=== PATIENT | female | born 1960 | race Caucasian/White ===

== ENCOUNTER 2016-11-22 22:48 | Emergency (ER) | payer SELFPAY ==
[~2016-11-22 22:48] MED LIST: DICL75TA PO; ROBA500T PO
[2016-11-22 22:52] VITALS: BP 144/75; PULSE 60; RESP 16; TEMP 98.2; O2SAT 95
[2016-11-23] MEDS ORDERED: BACT800T5 PO (01:00)
[2016-11-23] MEDS ORDERED: ACETAMINOPHEN/HYDROcodone 325 MG/5 MG TAB PO ONE (01:00)
[2016-11-23] MEDS ORDERED: SULFAMETHOXAZOLE-TRIMETHOPRIM DS 800-160 MG TAB PO ONE (01:00)
[2016-11-23] MEDS ORDERED: CEPHALEXIN MONOHYDRATE 500 MG CAP PO ONE (01:00)
[2016-11-23] MEDS ORDERED: CEPH-460 PO (01:00)
--- NOTE | 2016-11-23 01:06 | PD ---
HPI Chief Complaint: Bite or Sting Time Seen by Provider: 00:55 Travel History International Travel<30 days: No Contact w/Intl Traveler<30days: No Traveled to known affect area: No History of Present Illness HPI 56-year-old white female presents to emergency Department with complaints of a infection to her left lower leg which occurred one week ago. She states that she had fell on a carpeted floor the had gotten wet. She states that she developed several lesions on her lower leg which have become increasingly painful and swollen. Positive discharge. She states that she is up-to-date with immunizations. Pain is mild to moderate. Worse with ambulation. Some relief with elevation. She denies any fever or chills. No history of staph infections. PFSH Past Medical History Medical History: Denies Significant Hx Diminished Hearing: No Tetanus Vaccination: < 5 Years ?: Not : 3 Para: 2 : 1 Past Surgical History Narrative Surgical Uterine prolapse, cervical fusion Genitourinary Surgery: Yes (uterine prolapse repair) Other Surgery: Yes (bunionectomy left foot.) Social History Alcohol Use: No Tobacco Use: No Substance Use: No Allergies-Medications (Allergen,Severity, Reaction): Coded Allergies: No Known Allergies (Unverified , 11/22/16) Reported Meds & Prescriptions Reported Meds & Active Scripts Active Keflex (Cephalexin) 500 Mg Cap 500 Mg PO Q6H Bactrim DS (Sulfamethoxazole-Trimethoprim) 800-160 Mg Tab 1 Tab PO BID Review of Systems Except as stated in HPI: all other systems reviewed are Neg Physical Exam Narrative GENERAL: This is a well-nourished, well-developed patient, in no apparent distress. SKIN: No rashes, ecchymoses or lesions. Warm and dry. HEAD: Atraumatic. Normocephalic. EYES: PERRL, EOMI, no discharge or injection. No scleral icterus. EARS: Clear NOSE: Nasal turbinates appear normal. THROAT: Mucosa pink and moist. Airway patent. NECK: Trachea midline. supple, moves head freely. LUNGS: Clear to auscultation. CV: Regular in rhythm. ABDOMEN: Soft nontender. EXT: No clubbing cyanosis or edema. The patient has 2 erythematous tender swollen areas to the left lower pretibial region. Each measures approximately 4 x 4 centimeters. There is no fluctuance or pointing. The skin is broken down in a small amount of serosanguineous discharge. This is cultured. Data Data Last Documented VS Vital Signs Date Time Temp Pulse Resp B/P (MAP) Pulse Ox O2 Delivery O2 Flow Rate FiO2 11/22/16 22:52 98.2 60 16 144/75 (98) 95 Room Air Orders Orders Cephalexin (Keflex) (11/23/16 01:00) Sulfamet-Trimeth Ds 800-160 Mg (Bactrim (11/23/16 01:00) Acetamin-Hydrocod 325-5 Mg ([place] 5-325 (11/23/16 01:00) Wound Culture And Gram Stain (11/23/16 01:01) MDM Medical Decision Making Medical Screen Exam Complete: Yes Emergency Medical Condition: Yes Medical Record Reviewed: Yes Differential Diagnosis MDM: High Differential diagnoses: Abscess, folliculitis, cellulitis, lymphangitis, abrasion, contact dermatitis Narrative Course Patient is given Keflex 500 mg and Bactrim DS and one Lortab 5 mg by mouth here in the ER. A culture has been performed. This is left lower extremity cellulitis Diagnosis Primary Impression: Cellulitis of left lower leg Patient Instructions: General Instructions, Narcotic given in the ED Additional Instructions: Rest. Elevation. Warm compresses. Daily wound care with soap, water, Neosporin. Keflex and Bactrim DS. Recheck with a primary care doctor in 3-5 days. Return to the ER if any problems. Med/Other Pt SpecificInfo: Prescription(s) given, Wound Care Scripts Cephalexin (Keflex) 500 Mg Cap 500 MG PO Q6H for Infection, #28 CAP 0 Refills Prov: Kenzie Ang MD 11/23/16 Sulfamethoxazole-Trimethoprim (Bactrim DS) 800-160 Mg Tab 1 TAB PO BID for Infection, #20 TAB 0 Refills Prov: Kenzie Ang MD 11/23/16 Disposition: LEFT WITHOUT BEING SEEN Cortez Childs Nov 23, 2016 01:06
== END 2016-11-23 01:15 | disposition home or self-care (01) ==
LOC: NEPD 22:48
DX: L03.116 Cellulitis of left lower limb (principal); B95.0 Streptococcus, group A, as the cause of diseases classified elsewhere
CPT/HCPCS: 87070; 99284

== ENCOUNTER → 2017-09-10 | Day surgery (SDC) | payer BC ==
[~2017-09-10] MED LIST changes: +ACETAMINOPHEN/HYDROcodone 325 MG/5 MG TAB ONE; +BACT800T5 PO; +BUPIVACAINE HCL PF 0.5% 30 ML VIAL ONE; +CEPH-460 PO; -DICL75TA PO; +LACTATED RINGER'S 1000 ML INJ 1,000 ML ONE; +MIDAZOLAM HCL 2 MG/2 ML VIAL ONE; +PROPOFOL 200 MG/20 ML AMP IV ONE; -ROBA500T PO; +ceFAZolin 2 GM PREMIX 50 ML ONE
--- NOTE | 2017-09-10 10:14 | MP ---
cc: Debo Harrington [facility] DATE OF OPERATION: 09/10/2017 SURGEON: Debo Harrington MD TUG MASTER: None. PREOPERATIVE DIAGNOSES: 1. Left foot retained hardware. 2. Left foot first metatarsal hallux valgus. 3. Second metatarsal elongation. 4. Second digit hammertoe. POSTOPERATIVE DIAGNOSES: 1. Left foot retained hardware. 2. Left foot first metatarsal hallux valgus. 3. Second metatarsal elongation. 4. Second digit hammertoe. PROCEDURE PERFORMED: 1. Left foot hardware removal. 2. Left first MPJ fusion. 3. Left second metatarsal Ilya osteotomy. 4. Left second hammertoe repair. PATHOLOGY SENT: None. ANESTHESIA: General. HEMOSTASIS: Pneumatic ankle tourniquet at 250 mmHg. ESTIMATED BLOOD LOSS: Less than 5 mL. MATERIALS USED: Include Arthrex plate and screws, a 0.062 K-wire, 3-0 Monocryl, 3-0 Prolene. INJECTABLES: 10 mL of 0.5 percent Marcaine plain. COMPLICATIONS: None. INDICATIONS: Ms. Ortiz is a 57-year-old female patient well known to me from the office. She had a failed previous bunionectomy and was having severe deformity and pain with the second and first digit crossing over. She is also having plantar second metatarsal head pain. Decision was made at this time to fuse the first MPJ in a rectus position and reposition the second metatarsal, as well as fixing the hammertoe. The consent was signed and the procedure was explained. No guarantees were given. PROCEDURE: Under mild sedation, the patient was brought into the operating room, placed on the operating table in a supine position. Following IV sedation, a pneumatic ankle tourniquet was placed around the left ankle. The foot was then scrubbed, prepped and draped in the usual aseptic manner. An Esmarch bandage was used to exsanguinate the left foot and the pneumatic ankle tourniquet was inflated to 250 mmHg. Attention was directed to the dorsal aspect of the first metatarsophalangeal joint where there was severe lateral deformity of the hallux. The incision was deepened through skin and subcutaneous tissue with care being taken to identify and retracting vital neurovascular structures. The incision was deepened to the level of the joint. A rongeur was used to expose the head of the screw, which appeared to be a Kevin style screw placed from dorsal proximal to plantar distal. It did require some bone removal in order to gain access to the screw head and remove it, but it was removed in one piece and removed from the field in toto. Cartilage reamers were then used to denude the joint of any opposing cartilage. The area was flushed with copious amounts of sterile saline. A 0.062 K-wire was used to retrograde drill the opposing surfaces and the medial eminence was removed using an oscillating saw and a rongeur. The toe was then placed in an anatomical rectus alignment and temporarily pinned with a K-wire used for a cannulated 3-0 screw. The alignment was confirmed under fluoroscopy and noted to be in excellent rectus alignment. It clinically appeared this way as well. A 3-0 cannulated screw was then placed from distal medial to proximal lateral with excellent compression noted across the fusion site. A plate was then applied dorsally across the MPJ with an assortment of locking and nonlocking screws. There was a small bone void where the screw was removed; however, there was excellent contact between the plate and the bone in every other area. Attention was then directed to the dorsal aspect of the second metatarsophalangeal joint and the PIPJ where a linear longitudinal incision was created, deepened through skin and subcutaneous tissue with care being taken to identify and retract any vital neurovascular structures and the extensor tendon was transversely severed at the level of the PIPJ and reflected beyond the level of the MPJ. Collateral ligaments were released at the level of the PIPJ and the MPJ. An oscillating saw was used to create a 45-degree angle cut through the second metatarsal head. The opposing cartilaginous surfaces of the PIPJ were then removed using the same oscillating saw. Areas were flushed with copious amount of sterile saline. The metatarsal head was gently repositioned in a more proximal position and secured with a snap-off Arthrex screw. The remaining shelf of bone was removed using a rongeur. The PIPJ was then reset using a 0.062 K-wire double-ended retrograde drilled through all 3 phalanges. The area was flushed with copious amounts of sterile saline. The extensor tendon was repaired using 3-0 Monocryl. Deep and subcutaneous tissues were repaired using 3-0 Monocryl. Fluoroscopy was used throughout the procedure in order to ensure proper alignment and placement of hardware. Skin was closed using 3-0 Prolene. The Pneumatic ankle tourniquet was released with a prompt hyperemic response to all digits of the left foot. 10 mL of 0.5% Marcaine plain were injected around the surgical sites and a well-padded bandage consisting of Adaptic, 4 x 4's, and a well-padded posterior splint were applied. The patient tolerated the procedure and anesthesia well. She will recover in the PACU for a period of time before being discharged home with written and oral postoperative instructions. Debo Harrington DPM LMW/DL , 09:45 AM , 10:13 AM
== END | disposition home or self-care (01) ==
LOC: ESDC 06:19
PROVIDERS: ATTEND Podiatrist Foot & Ankle Surgery
DX: M20.12 Hallux valgus (acquired), left foot (principal); M20.42 Other hammer toe(s) (acquired), left foot; T84.84XA Pain due to internal orthopedic prosthetic devices, implants and grafts, initial encounter
CPT/HCPCS: 01480; 20680; 28285; 28308; 28750; 73620; 76000; C1713; J0690; J2250; J3010; J7120